=== PATIENT | male | born 1990 | race Caucasian/White ===

== ENCOUNTER 2016-12-23 09:11 | Emergency (ER) | payer OTHER ==
[2016-12-23 09:49] LABS: Bilirubin,Urine NEG (Negative); Blood,Urine NEG (Negative); Ketones,Urine NEG (Negative); Leukocyte Esterase,Urine NEG (Negative); Mucus,Urine 3+ /HPF; Nitrite,Urine NEG (Negative); Protein,Urine <15 mg/dL mg/dL (Negative); Urobilinogen,Urine < 2.0 mg/dL (<2.0); WBC,Urine < 1.0 /HPF (0.0-6.0)
--- NOTE | 2016-12-23 10:48 | Ultrasound Report ---
TESTICULAR ULTRASOUND WITH DUPLEX DOPPLER ULTRASOUND: 12/23/16 09:30:00 CLINICAL: Pain and swelling in the right testicle. FINDINGS: High resolution ultrasound demonstrated normal size testes with normal echogenicity and contours. No testicular mass. The right testis measured 4.8 x 3.9 x 2.7cm. The left testis measured 4.6 x 2.4 x 5.1cm. Although both testes appear normal on the grayscale imaging, color and pulsed Doppler demonstrated no blood flow in the right testis. Normal right epididymis with blood flow demonstrated by color and duplex Doppler. Normal left epididymis and normal blood flow in the left epididymis and testis by color and duplex Doppler. Small bilateral hydroceles. IMPRESSION: 1. Absence of blood flow in the right testis suggests a testicular torsion. 2. Normal left testis and bilateral epididymides.
--- NOTE | 2016-12-23 10:58 | Emergency Department Report ---
HPI - General Chief Complaint: Urogenital-Male Time Seen by Provider: 12/23/16 10:21 - HPI HPI: Room 24 The patient is a 26-year-old male presenting with a chief complaint right testicular pain. Patient states he is asleep and awakened at 04:00 this morning with pain in the right testicle. The patient states the pain as been constant. Patient denies dysuria or hematuria or penile discharge. Location: Right testicle Duration: Since 04:00 Quality: Pain Severity:02/27 Modifying factors: [see above] Context: [see above] Mode of transportation: Unknown ED Past Medical Hx - Past Medical History Previous Medical History?: No Hx HIV: Yes (unknown CD4 count) - Surgical History Additional Surgical History: tonsillectomy - Family History Family history: no significant - Social History Smoking Status: Never Smoker Substance Use Type: None - Medications Home Medications: Home Medications Medication Instructions Recorded Confirmed Last Taken Type Elviteg/Cori/Emtric/Tenofo Ala 1 each PO QDAY 12/23/16 12/23/16 12/22/16 16:00 History [[place] (Nf)] ED Review of Systems ROS: Stated complaint: PAIN IN TESTICLE Other details as noted in HPI Comment: All other systems reviewed and negative Constitutional: denies: chills, fever Eyes: denies: eye pain, eye discharge, vision change ENT: denies: ear pain, throat pain Respiratory: denies: cough, shortness of breath, wheezing Cardiovascular: denies: chest pain, palpitations Endocrine: no symptoms reported Gastrointestinal: denies: abdominal pain, nausea, diarrhea Genitourinary: testicular pain Musculoskeletal: denies: back pain, joint swelling, arthralgia Skin: denies: rash, lesions Neurological: denies: headache, weakness, paresthesias Psychiatric: denies: anxiety, depression Hematological/Lymphatic: denies: easy bleeding, easy bruising Physical Exam - Physical Exam Vital Signs: Vital Signs 12/23/16 09:18 Temperature 98.1 F Pulse Rate 67 Respiratory 17 Rate Blood Pressure 153/95 O2 Sat by Pulse 100 Oximetry Physical Exam: GENERAL: The patient is well-developed well-nourished male sitting on stretcher not appearing to be in acute distress. [] HEENT: Normocephalic. Atraumatic. NECK: Supple. Trachea midline CHEST/LUNGS: There is no respiratory distress noted. HEART/CARDIOVASCULAR: Regular. There is no tachycardia. ABDOMEN: There is no abdominal distention. SKIN: There is no diaphoresis. NEURO: The patient is awake, alert, and oriented. The patient is cooperative. The patient has normal speech MUSCULOSKELETAL: There is no evidence of acute injury. GENITOURINARY: Swollen right testicle. No cremasteric reflex on the right ED Course Vital Signs 12/23/16 09:18 Temperature 98.1 F Pulse Rate 67 Respiratory 17 Rate Blood Pressure 153/95 O2 Sat by Pulse 100 Oximetry - Consultations Consultation #1: 12/23/16 10:56 [place] transfer line called 12/23/16 10:59 Case discussed with transfer line-awaiting call back 12/23/16 11:17 Case discussed with [place] urologist Dr. Sheffield will accept patient in transfer. States it is okay to administer pain medication 12/23/16 11:19 ED Medical Decision Making - Lab Data Laboratory Tests 12/23/16 09:21 Urine Color Yellow Urine Turbidity Clear Urine pH 6.0 Ur Specific [place] 1.021 Urine Protein <15 mg/dl Urine Glucose (UA) Neg Urine Ketones Neg Urine Blood Neg Urine Nitrite Neg Urine Bilirubin Neg Urine Urobilinogen < 2.0 Ur Leukocyte Esterase Neg Urine WBC (Auto) < 1.0 Urine RBC (Auto) 2.0 Urine Mucus 3+ - Radiology Data Radiology results: report reviewed (testicular Doppler), image reviewed ( testicular Doppler) Testicular Doppler (read by radiologist)-absence of blood flow in the right testis suggests a testicular torsion. Normal left testis and bilateral epididymis. - Differential Diagnosis testicular torsion, epididymitis, UTI, renal colic Critical care attestation.: If time is entered above; I have spent that time in minutes in the direct care of this critically ill patient, excluding procedure time. ED Disposition Clinical Impression: Right testicular torsion, Right testicular pain Disposition: DC/TX-[id number] ANOTHER TYPE HLTHCARE Is pt being admited?: No Does the pt Need Aspirin: No Condition: Serious Referrals: PRIMARY CARE,MD [Primary Care Provider] - 3-5 Days Time of Disposition: 11:07 (awaiting acceptance)
[2016-12-23 11:15] VITALS: BP 156/89
[2016-12-23] MEDS ORDERED: ZOFRAN IV ONE (11:20)
[2016-12-23] MEDS ORDERED: SUBLIMAZE IV ONE (11:20)
== END 2016-12-23 12:29 | disposition other institution (70) ==
LOC: ED 09:11
DX: N44.00 Torsion of testis, unspecified (principal); N50.811 Right testicular pain
CPT/HCPCS: 81001; 93975; 96374; 96375; 99285; J2405; J3010